=== PATIENT | female | born 2000 | race Caucasian/White ===

== ENCOUNTER 2025-03-10 07:12 | Emergency (ER) | payer SELFPAY ==
[2025-03-10 07:16] VITALS: BP 122/85
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
[2025-03-10] MEDS: MOTRIN 600 MG PO (07:50)
[2025-03-10] MEDS: ZOFRAN ODT (ORALLY DISINTEGRATING) 4 MG PO (07:50)
[2025-03-10 12:29] VITALS: BP 136/66
== END 2025-03-10 12:55 | disposition home or self-care (01) ==
LOC: EMR 07:12
PROVIDERS: EMERGENCY PHYSICIAN Student in an Organized Health Care Education/Training Program
DX: F43.9 Reaction to severe stress, unspecified (principal); H93.13 Tinnitus, bilateral; R11.0 Nausea; R51.9 Headache, unspecified
CPT/HCPCS: 99283